=== PATIENT | male | born 1980 | race Caucasian/White ===

== ENCOUNTER 2018-11-20 21:23 | Emergency (ER) | payer OTHER ==
[2018-11-20 21:35] VITALS: TEMP 97.6; BMI 36.8
--- NOTE | 2018-11-20 21:42 | PDOC ---
History of Present Illness - General Chief Complaint: Lightheaded Stated Complaint: LIGHTHEADED Time Seen by Provider: 11/20/18 21:42 - History of Present Illness Initial Comments: 11/20/18 21:55 Mr. Mclaughlin is a 38 yo male w/ no significant pmh who presents for evaluation of symptoms of dizziness for the past 24 hours. Patient reports symptoms started last night and have been exacerbated by laying on his left side. He has had episodes like this "a few" times in the past 1-2 years ago however reports he was never evaluated as symptoms were controllable with rest. Patient elected to come in this time as dizziness was worse than previous and he vomited 1 time. Describes the sensation as the room spinning and that he feels "off." The patient denies chest pain, shortness of breath, and headache. Denies fever, chills, diarrhea and constipation. Denies dysuria, frequency, urgency and hematuria. Past History - Past Medical History Allergies/Adverse Reactions: Allergies Allergy/AdvReac Type Severity Reaction Status Date / Time No Known Allergies Allergy Verified 11/20/18 21:27 Home Medications: Ambulatory Orders Meclizine HCl 25 mg PO TID PRN #21 tablet 11/21/18 COPD: No Other medical history: vertigo - Suicide/Smoking/Psychosocial Hx Smoking Status: No Smoking History: Never smoked Have you smoked in the past 12 months: No Number of Cigarettes Smoked Daily: 0 Information on smoking cessation initiated: No Hx Alcohol Use: No Drug/Substance Use Hx: No Review of Systems - Review of Systems Comments:: 11/20/18 21:56 GENERAL/CONSTITUTIONAL: No fever or chills. No weakness. HEAD, EYES, EARS, NOSE AND THROAT: No change in vision. No ear pain or discharge. No sore throat. CARDIOVASCULAR: No chest pain or shortness of breath RESPIRATORY: No cough, wheezing, or hemoptysis. GASTROINTESTINAL: +N/V as described. No diarrhea or constipation. GENITOURINARY: No dysuria, frequency, or change in urination. MUSCULOSKELETAL: No joint or muscle swelling or pain. No neck or back pain. SKIN: No rash NEUROLOGIC: +Dizziness as described. No headache loss of consciousness, or change in strength/sensation. ENDOCRINE: No increased thirst. No abnormal weight change HEMATOLOGIC/LYMPHATIC: No anemia, easy bleeding, or history of blood clots. ALLERGIC/IMMUNOLOGIC: No hives or skin allergy. *Physical Exam - Vital Signs Last Vital Signs Temp Pulse Resp BP Pulse Ox 97.6 F 72 16 130/77 100 11/20/18 21:26 11/20/18 21:26 11/20/18 21:26 11/20/18 21:26 11/20/18 21:26 - Physical Exam Comments: 11/20/18 21:56 GENERAL: Awake, alert, and fully oriented, in no acute distress HEAD: No signs of trauma, normocephalic, atraumatic EYES: +Horizontal nystagmus noted to L side. PERRLA, EOMI, sclera anicteric, conjunctiva clear ENT: Auricles normal inspection, hearing grossly normal, nares patent, oropharynx clear without exudates. Moist mucosa NECK: Normal ROM, supple, no lymphadenopathy, JVD, or masses LUNGS: No distress, speaks full sentences, clear to auscultation bilaterally HEART: Regular rate and rhythm, normal S1 and S2, no murmurs, rubs or gallops, peripheral pulses normal and equal bilaterally. ABDOMEN: Soft, nontender, normoactive bowel sounds. No guarding, no rebound. No masses EXTREMITIES: Normal inspection, Normal range of motion, no edema. No clubbing or cyanosis. NEUROLOGICAL: Cranial nerves II through XII grossly intact. Normal speech, normal gait, no focal sensorimotor deficits SKIN: Warm, Dry, normal turgor, no rashes or lesions noted. Moderate Sedation - Procedure Monitoring Vital Signs: Procedure Monitoring Vital Signs Temperature 97.6 F 11/20/18 21:26 Pulse Rate 72 11/20/18 21:26 Respiratory Rate 16 11/20/18 21:26 Blood Pressure 130/77 11/20/18 21:26 O2 Sat by Pulse Oximetry (%) 100 11/20/18 21:26 ED Treatment Course - LABORATORY CBC & Chemistry Diagram: 11/20/18 20:10 11/20/18 20:10 Medical Decision Making - Medical Decision Making 11/20/18 23:32 Mr. Mclaughlin is a 38 yo male w/ no significant pmh who presents for evaluation of symptoms concerning for vertigo vs. anemia vs. cardiac process. Patient evaluated with head CT and labs as below. Labs grossly wnl. Symptoms controlled with 25mg meclizine. Head CT pending. 11/20/18 23:58 Patient signed out to Dr. Fernando for further evaluation. Laboratory Results - last 24 hr 11/20/18 11/20/18 20:10 20:10 WBC 6.8 RBC 4.58 Hgb 14.0 Hct 40.0 MCV 87.4 MCH 30.6 MCHC 35.0 RDW 13.0 Plt Count 269 MPV 9.3 Absolute Neuts (auto) 4.0 Neutrophils % 59.1 Lymphocytes % 28.1 Monocytes % 8.7 Eosinophils % 2.8 Basophils % 1.3 Nucleated RBC % 0 Sodium 142 Potassium 3.8 Chloride 106 Carbon Dioxide 30 Anion Gap 6 L BUN 15 Creatinine 1.0 Creat Clearance w eGFR 84.08 Random Glucose 102 Calcium 8.4 L Total Bilirubin 0.2 AST 22 ALT 60 Alkaline Phosphatase 98 Creatine Kinase 57 Troponin I < 0.02 Total Protein 6.9 Albumin 3.7 *DC/Admit/Observation/Transfer Diagnosis at time of Disposition: Dizziness - Discharge Dispostion Disposition: HOME Condition at time of disposition: Stable - Prescriptions Prescriptions: Meclizine HCl 25 mg PO TID PRN #21 tablet PRN Reason: Vertigo - Referrals Referrals: Chong Hall MD [Staff Physician] - Garrison Melgar MD [Primary Care Provider] - - Patient Instructions Additional Instructions: you were seen in the emergency department for dizziness. please follow up with the neurologist within 1 week after discharge for follow up care and management. please return to the emergency department if you have worsening symptoms or new concerning symptoms such as confusion, focal neurological deficits, and nausea and vomiting. thank you. - Post Discharge Activity Forms/Work/School Notes: Back to Work
[2018-11-20] MEDS ORDERED: MECLIZINE HCL 25 MG TABLET (FP) PO ONE (21:56)
[2018-11-20] MEDS ORDERED: MECLIZINE HCL 25 MG TABLET (FP) ONE (22:01)
[2018-11-20 22:20] LABS: BASO % 1.3 % (0-2.0); EOS % 2.8 % (0-4.5); LYMPH % 28.1 % (8-40); MCH 30.6 pg (25.7-33.7); MEAN CELL VOLUME 87.4 fl (80-96); MEAN PLT VOLUME 9.3 fl (7.5-11.1); MONO % 8.7 % (3.8-10.2); NEUT % 59.1 % (42.8-82.8); PLATELET COUNT 269 K/MM3 (134-434); RBC 4.58 M/mm3 (4.00-5.60); WHITE BLOOD COUNT 6.8 K/mm3 (4.0-10.0)
[2018-11-20] MEDS ORDERED: SODIUM CHLORIDE 1,000 ML IV STA (22:28)
[2018-11-20] MEDS ORDERED: ONDANSETRON 4 MG/2 ML VIAL IVPB ONE (22:28)
--- NOTE | 2018-11-20 22:28 | PDOC ---
Attending Attestation - Resident Resident Name: Joseluis Pat - ED Attending Attestation I have performed the following: I have examined & evaluated the patient, The case was reviewed & discussed with the resident, I agree w/resident's findings & plan, Exceptions are as noted - HPI HPI: 11/20/18 22:26 The patient is a 38-year-old male with no significant past medical history presents to the emergency department with dizziness. Pt complains of room- spinning dizziness that started last night while watching TV. The patient reports the symptoms are aggravated with laying on the left side. He feels better standing up. Denies any weakness/numbness/facial droop. The patient reports similar symptoms in the past, the last episode about a year ago. The episodes usually resolve when he sleeps, but this one has persisted. Has never seen a doctor for this. - Physicial Exam PE: 11/20/18 22:27 "GENERAL: Awake, alert, and fully oriented, in no acute distress. HEAD: No signs of trauma EYES: PERRLA, EOMI, sclera anicteric, conjunctiva clear ENT: Auricles normal inspection, hearing grossly normal, nares patent, oropharynx clear without exudates. Moist mucosa NECK: Nontender, no stepoffs, Normal ROM, supple, no lymphadenopathy, JVD, or masses LUNGS: Breath sounds equal, clear to auscultation bilaterally. No wheezes, and no crackles HEART: Regular rate and rhythm, normal S1 and S2, no murmurs, rubs or gallops ABDOMEN: Soft, nontender, normoactive bowel sounds. No guarding, no rebound. No masses EXTREMITIES: Normal range of motion, no edema. No clubbing or cyanosis. No cords, erythema, or tenderness NEUROLOGICAL: Cranial nerves II through XII intact. 5/5 strength and sensation in all extremities, Normal speech, normal gait, normal cerebellar function SKIN: Warm, Dry, normal turgor, no rashes or lesions noted. - Medical Decision Making 11/20/18 22:27 38 M with room-spinning dizziness. Likely peripheral vertigo. No neuro deficits on exam to suggest CVA. - Labs - CT head - Meclizine 11/20/18 23:[address] head negative on my read Pt reassessed - now feels much better. Will DC with meclizine and neuro/ENT f/u Pt is well appearing, with normal vitals. Clinically stable for DC at this time. I discussed the physical exam findings, ancillary test results and final diagnoses with the patient. I answered all of the patient's questions. The patient was satisfied with the care received and felt comfortable with the discharge plan and treatment plan. The patient agrees to follow up with the primary care physician within 24-72 hours.
[2018-11-20] MEDS ORDERED: ONDANSETRON 4 MG/2 ML VIAL ONE (22:30)
[2018-11-20 22:46] LABS: ALBUMIN 3.7 g/dl (3.4-5.0); ALK PHOS 98 U/L (45-117); ANION GAP 6 MMOL/L (8-16); BILIRUBIN,TOTAL 0.2 mg/dL (0.2-1); BLOOD UREA NITROGEN 15 mg/dL (7-18); CALCIUM 8.4 mg/dL (8.5-10.1); CHLORIDE 106 mmol/L (98-107); CO2 30 mmol/L (21-32); GLUCOSE,RANDOM 102 mg/dL (74-106); POTASSIUM 3.8 mmol/L (3.5-5.1); SGOT/AST 22 U/L (15-37); SGPT/ALT 60 U/L (13-61); SODIUM 142 mmol/L (136-145); TOT PROT 6.9 g/dl (6.4-8.2)
--- NOTE | 2018-11-20 23:49 | PDOC ---
*Physical Exam - Vital Signs Last Vital Signs Temp Pulse Resp BP Pulse Ox 97.6 F 72 16 130/77 100 11/20/18 21:26 11/20/18 21:26 11/20/18 21:26 11/20/18 21:26 11/20/18 21:26 - Physical Exam Comments: 11/20/18 23:48 38 yo M without past medical history presenting with dizziness. Patient was signed out to me by Dr. Pat. The patient was having room spinning sensation for 1 day that worsens with laying on the left side and relieves with a standing position. Denies the following: trauma, fever, chills, visual changes , headache, chest pain, SOB, nausea. ED Treatment Course - LABORATORY CBC & Chemistry Diagram: 11/20/18 20:10 11/20/18 20:10 - ADDITIONAL ORDERS Additional order review: Laboratory Results 11/20/18 20:10 Sodium 142 Potassium 3.8 Chloride 106 Carbon Dioxide 30 Anion Gap 6 L BUN 15 Creatinine 1.0 Creat Clearance w eGFR 84.08 Random Glucose 102 Calcium 8.4 L Total Bilirubin 0.2 AST 22 ALT 60 Alkaline Phosphatase 98 Creatine Kinase 57 Troponin I < 0.02 Total Protein 6.9 Albumin 3.7 11/20/18 20:10 RBC 4.58 MCV 87.4 MCHC 35.0 RDW 13.0 MPV 9.3 Neutrophils % 59.1 Lymphocytes % 28.1 Monocytes % 8.7 Eosinophils % 2.8 Basophils % 1.3 - Medications Given in the ED: ED Medications Discontinued Medications Generic Name Dose Route Start Last Admin Trade Name Freq PRN Reason Stop Dose Admin Sodium Chloride 1,000 mls @ 1,000 mls/hr 11/20/18 22:28 11/20/18 22:38 Normal Saline - IV 11/20/18 23:27 1,000 mls/hr ASDIR STA Administration Meclizine HCl 25 mg 11/20/18 21:56 11/20/18 22:16 Antivert - PO 11/20/18 21:57 25 mg ONCE ONE Administration Ondansetron HCl 4 mg 11/20/18 22:28 11/20/18 22:38 Zofran Injection IVPB 11/20/18 22:29 4 mg ONCE ONE Administration Medical Decision Making - Medical Decision Making 38 yo M with no past medical history presenting with dizziness that worsens with positional change and relieves with rest. Initial vitals: Initial Vital Signs Temp Pulse Resp BP Pulse Ox 97.6 F 72 16 130/77 100 11/20/18 21:26 11/20/18 21:26 11/20/18 21:26 11/20/18 21:26 11/20/18 21:26 patient has improvement in symptoms with meclizine. CT head was negative for intracranial acute processes. given an outpatient prescription for meclizine and follow up with neurology. instructed the patient to follow up with neurology within 1 week after discharge for further care and management. Dispo: Discharge *DC/Admit/Observation/Transfer Diagnosis at time of Disposition: Dizziness - Discharge Dispostion Disposition: HOME Condition at time of disposition: Stable Decision to Admit order: No - Prescriptions Prescriptions: Meclizine HCl 25 mg PO TID PRN #21 tablet PRN Reason: Vertigo - Referrals Referrals: Garrison Melgar MD [Primary Care Provider] - Chong Hall MD [Staff Physician] - - Patient Instructions Additional Instructions: you were seen in the emergency department for dizziness. please follow up with the neurologist within 1 week after discharge for follow up care and management. please return to the emergency department if you have worsening symptoms or new concerning symptoms such as confusion, focal neurological deficits, and nausea and vomiting. thank you. - Post Discharge Activity Forms/Work/School Notes: Back to Work
[2018-11-21 01:28] VITALS: BP 97/58; PULSE 65
--- NOTE | 2018-11-21 16:14 | EKG ---
Test Reason : Blood Pressure : / mmHG Vent. Rate : 075 BPM Atrial Rate : 075 BPM P-R Int : 166 ms QRS Dur : 092 ms QT Int : 382 ms P-R-T Axes : 036 015 030 degrees QTc Int : 426 ms NORMAL SINUS RHYTHM NORMAL ECG NO PREVIOUS ECGS AVAILABLE Confirmed by LUPE SANTIZO MD ([id number]) on 11/21/2018 4:13:46 PM Referred By: Confirmed By:LUPE SANTIZO MD
== END 2018-11-21 01:26 | disposition home or self-care (01) ==
LOC: JER 21:23
PROC: 3E033GC Introduction of Other Therapeutic Substance into Peripheral Vein, Percutaneous Approach (ICD-10-PCS; principal; 2018-11-20)
DX: H81.399 Other peripheral vertigo, unspecified ear (principal)
CPT/HCPCS: 36415; 70450-TC; 80053; 82550; 84484; 85025; 93005; 93010; 99283-25; J7030